=== PATIENT | male | born 1995 | race Caucasian/White ===

== ENCOUNTER 2016-12-23 20:22 | Emergency (ER) | payer OTHER ==
[~2016-12-23] VITALS: Ht 175.3 cm; Wt 55.0 kg
[2016-12-23 20:25] VITALS: Ht 175.3 cm; Wt 55.0 kg
[2016-12-23] MEDS ORDERED: BEN50 PO (23:47)
[2016-12-23] MEDS ORDERED: PRED20TA PO (23:47)
[2016-12-24] MEDS ORDERED: DIPHENHYDRAMINE 50 MG CAP PO ONE
--- NOTE | 2016-12-24 00:27 | RADRPT ---
PROCEDURE: Ultrasound soft tissue CLINICAL INDICATION: Right elbow swelling. TECHNIQUE: An ultrasound of the right elbow was performed utilizing daigle scale imaging. COMPARISON: None. FINDINGS: Normal soft tissues are visualized in the right elbow region. No fluid collection or mass is identi fied. IMPRESSION: 1 . No right elbow fluid collection or mass. RPTAT: HTAR .Paulie Lobato MD, MD Date Time Electronically viewed and signed by .Paulie Lobato MD, MD on 12/24/2016 00:27 .R/
--- NOTE | 2016-12-24 02:41 | ERD ---
ER Documentation Chief Complaint Date/Time DATE: 12/24/16 TIME: 02:32 Chief Complaint R elbow swelling after insect bite last nite HPI 21-year-old male complaining of right elbow swelling. Patient stated that he noticed a insect bite of the right elbow last night, was itching. This morning the whole elbow is swollen, he is now complaining of pain at the right elbow. Denies fever or chills. Denies shortness of breath. ROS All systems reviewed and are negative except as per history of present illness. Medications Home Meds Active Scripts Prednisone* (Prednisone*) 20 Mg Tab, 60 MG PO DAILY for 5 Days, TAB Prov:CHICA MOREL. [employer] 12/23/16 Diphenhydramine Hcl* (Benadryl*) 50 Mg Cap, 50 MG PO Q6H Y for ITCHING/RASH, # 30 CAP Prov:CHICA MOREL. [employer]CTOR 12/23/16 Allergies Allergies: Coded Allergies: No Known Allergy (Unverified , 12/23/16) PMhx/Soc Medical and Surgical Hx: pt denies Medical Hx Hx Alcohol Use: No Hx Substance Use: No Hx Tobacco Use: No Physical Exam Vitals Vital Signs Date Time Temp Pulse Resp B/P Pulse Ox O2 Delivery O2 Flow Rate FiO2 12/23/16 20:25 99.9 81 18 130/73 100 Physical Exam General impression: Well-developed, well-nourished. Alert, oriented, in no acute distress Head: Normocephalic, atraumatic. ENT: Nasal mucosa, oral mucosa and oropharynx are normal. Neck: Supple, nontender. No lymphanopathy. No nuchal rigidity. Respiration: Normal respiratory effort. Lungs clear to auscultate bilaterally. No wheezes, rales or rhonchi. Cardiovascular: Regular rate and rhythm. No murmurs or extra heart sounds. Extremities: A 10 x 30 cm area of swelling noted on the posterior right elbow , with several 1-2 cm welts centrally. Slightly erythematous and warm to touch , slightly tender. Normal range of motion of the right elbow. Neurovascularly intact distally. Neuro: Mental status normal, speech normal. Skin: Normal turgor. No rash or lesions. Psych: Normal mood and affect. Results 24 hrs Current Medications Medications (Trade) Dose Ordered Sig/Nato Route PRN Reason Start Time Stop Time Status Last Admin Dose Admin Diphenhydramine HCl (Benadryl) 50 mg ONCE ONCE PO 12/24/16 00:00 12/24/16 00:01 DC 12/23/16 23:47 Procedures/MDM Well-appearing 21-year-old male presents to ED with swelling in the right elbow. Ultrasound of the right elbow did not show any fluid collection or mass. Likely the swelling is due to large local reaction from insect bite. Low suspicion for cellulitis or abscess. Low suspicion for bursitis. No sign of anaphylaxis. Patient given Benadryl in the ED. Patient appears well, stable for discharge and outpatient management. Medical decision making shared with patient and family. Education provided to patient and family. Patient and family expressed understanding of the plan. Medications on discharge: Benadryl, prednisone. Follow-up: Primary care provider in 2-3 days or return to ED if worse. Departure Diagnosis: Primary Impression: Insect bite of elbow with local reaction Condition: Stable Patient Instructions: Allergic Reaction, Insect (Local) Referrals: [facility] YOU HAVE RECEIVED A MEDICAL SCREENING EXAM AND THE RESULTS INDICATE THAT YOU DO NOT HAVE A CONDITION THAT REQUIRES URGENT TREATMENT IN THE EMERGENCY DEPARTMENT. FURTHER EVALUATION AND TREATMENT OF YOUR CONDITION CAN WAIT UNTIL YOU ARE SEEN IN YOUR DOCTORS OFFICE WITHIN THE NEXT 1-2 DAYS. IT IS YOUR RESPONSIBILITY TO MAKE AN APPOINTMENT FOR FOLOW-UP CARE. IF YOU HAVE A PRIMARY DOCTOR --you should call your primary doctor and schedule an appointment IF YOU DO NOT HAVE A PRIMARY DOCTOR YOU CAN CALL OUR PHYSICIAN REFERRAL HOTLINE AT IF YOU CAN NOT AFFORD TO SEE A PHYSICIAN YOU CAN CHOSE FROM THE FOLLOWING [facility] [address] [facility] [address] [facility]. [facility] [address] [place] [facility] [address] [place]. [facility] [address] [facility]. [facility]. [address] Additional Instructions: Call your primary care doctor TOMORROW for an appointment during the next 2-3 days.See the doctor sooner or return here if your condition worsens before your appointment time. CHICA MOREL NP Dec 24, 2016 02:41
== END 2016-12-24 00:13 | disposition home or self-care (01) ==
LOC: FTE 20:22
DX: S50.361A Insect bite (nonvenomous) of right elbow, initial encounter (principal); W57.XXXA Bitten or stung by nonvenomous insect and other nonvenomous arthropods, initial encounter; Y92.9 Unspecified place or not applicable
CPT/HCPCS: 76536; Z7502; Z7610